=== PATIENT | female | born 1975 | race Caucasian/White ===

== ENCOUNTER 2018-08-07 02:53 | Observation (INO) | payer BC ==
[2018-08-07] MEDS ORDERED: Magnesium Sulfate 2 GM/100 ML BAG ONE (04:02)
[2018-08-07 04:50] LABS: BHCG - Serum Negative (NEGATIVE); Pregs Control Background? CLEAR/WHITE (CLR/WHITE); Pregs Control Bar Appear? YES (CONTROL BAR)
[2018-08-07 04:55] LABS: ALT (SGPT) 23 U/L (8-55); AST (SGOT) 27 U/L (5-34); Acetaminophen Less than 6.0 mcg/mL (10.0-30.0); Albumin 5.3 g/dL (3.5-5.0); Alcohol Less than 10 mg/dL (Less than 10); Alkaline Phosphatase 52 U/L (40-150); Anion Gap 15 mmol/L (10-20); BUN (Urea Nitrogen) 7 mg/dL (7.0-18.7); Bilirubin, Total 1.8 mg/dL (0.2-1.2); Calc. Creatinine Clearance 0 mL/min (70-130); Calcium 11.1 mg/dL (7.8-10.44); Carbon Dioxide 25 mmol/L (22-29); Chloride 101 mmol/L (98-107); Estimated GFR-MDRD 75; Globulin 3.3 g/dL (2.4-3.5); Glucose 112 mg/dL (70-105); Protein, Total 8.6 g/dL (6.0-8.3); Salicylate Less than 8.0 mg/dL (15.0-30.0); Sodium 138 mmol/L (136-145)
[2018-08-07 04:58] LABS: #Basophils 0.1 thou/uL (0.0-0.2); #Lymphocytes 1.2 thou/uL (1.20-3.40); #Monocytes 0.5 thou/uL (0.11-0.59); %Basophils 0.6 % (0.0-1.0); %Eosinophils 0.3 % (0.0-10.0); %Lymphocytes 11.4 % (21.0-51.0); %Monocytes 4.6 % (0.0-10.0); %Neutrophils 83.1 % (42.0-75.0); Hemoglobin 15.4 g/dL (12.0-16.0); Mean Corpuscular HGB CONC 33.4 g/dL (32.0-36.0); Mean Corpuscular Hemoglobin 34.4 pg (27.0-31.0); Mean Platelet Volume 10.3 fL (7.4-10.4); Platelet Count 183 thou/uL (130-400); RBC Distribution Width 12.3 % (11.5-14.5); Red Blood Cell (RBC) Count 4.47 mill/uL (4.20-5.40); White Blood Cell (WBC) Count 10.8 thou/uL (4.8-10.8)
[2018-08-07 04:59] LABS: Troponin I Less than 0.010 ng/mL (< 0.028)
[2018-08-07] MEDS ORDERED: Lorazepam 2 MG/ML VIAL ONE (05:00)
[2018-08-07 05:05] LABS: CKMB 7.2 ng/mL (0-6.6)
[2018-08-07 05:12] LABS: Thyroid Stimulating Hormone 2.6533 uIU/mL (0.35-4.94)
[2018-08-07] MEDS ORDERED: levETIRAcetam In NaCl (Iso-Os) 1,000 MG in Premix Bag 1 BAG IVPB SCH ×4 (05:30→21:00)
--- NOTE | 2018-08-07 06:00 | PDOC.FPRHP ---
- History of Present Illness Chief Complaint: Seizure History of Present Illness: Patient presents after having seizure like activity at 0100 this morning. Patient's boyfriend witnessed seizure and told her what happened as she does not remember anything. They went downstairs to get a snack and she fell down, shook, boyfriend performed CPR, and she awoke on the couch. Approx 20 min to come to herself. Nausea and vomit x4 then went to ED with her mother. Reportedly had another seizure, full body shaking, in the ED seen by nurse. A few minutes before she came to herself. It was reported to be an atypical post ictal presentation. No incontinence. Pt vomiting in room at time of exam. Feels hot and cold, has headache. Switched from zoloft-> celexa 2 mo ago. Since then has lost weight d/t decreased appetite. Otherwise no recent medication changes. Previous heavy alcohol user. Last drink 2 weeks ago. Rx for xanax that she takes BID. Only missed one dose last night. ED Course: ativan 2mg, mag 2g, keppra 1000mg, CT brain - Allergies/Adverse Reactions Allergies Allergy/AdvReac Type Severity Reaction Status Date / Time codeine Allergy Mild Rash Verified 08/07/18 14:10 gluten Allergy Unknown Verified 08/08/18 12:29 lactase [From Dairy Aid] Allergy Unknown Verified 08/08/18 12:30 - Home Medications Medication Instructions Recorded Confirmed Type ALPRAZolam [Alprazolam] 2 tab PO DAILY 08/07/18 08/07/18 History Citalopram Hydrobromide 40 mg PO HS 08/07/18 08/07/18 History [Citalopram HBr] Melatonin 10 mg PO HS 08/07/18 08/07/18 History levETIRAcetam [Keppra] 500 mg PO BID #28 tab 08/08/18 Rx - History PMHx: anxiety, depression PSHx: none FHx: brother- CVA @ 40, brother with hx seizure Social: Lives with boyfriend. Occasional tobacco use. Vapes daily. Uses marijuana. Previous "heavy" alcohol use. Last drink 2 wks ago. - Review of Systems General: reports: fever/chills, weight/appetite/sleep changes Eyes: denies: eye pain, vision changes ENT: denies: nasal congestion, rhinorrhea Respiratory: denies: cough, shortness of breath Cardiovascular: denies: chest pain, palpitation Gastrointestinal: reports: nausea, vomiting. denies: diarrhea, abdominal pain Genitourinary: denies: incontinence, dysuria Skin: denies: rashes, lesions Musculoskeletal: denies: pain, swelling Neurological: reports: seizure. denies: numbness Psychological: reports: anxiety, depression - Vital signs BP: 136/76 HR: 111 RR: 18 Tmax: 98 Pox: 94% on RA Wt: 59 kg - Physical Exam -Constitutional: Vomiting HEENT: normocephalic and atraumatic, grossly normal vision, grossly normal hearing, MMM, oropharynx clear (no trauma seen) Neck: supple, trachea midline, no LAD, no thyromegaly Heart: RRR, normal S1/S2, pulses present Lungs: CTAB, good air movement, no rales/rhonchi, no wheezing Abdomen: soft, non-tender, bowel sounds present Musculoskeletal: normal structure, ROM grossly normal Neurological: no focal deficit (5/5 muscle strength all extremities) Skin: no rash/lesions, good turgor, capillary refill <2 seconds Heme/Lymphatic: no unusual bruising or bleeding -Psychiatric: odd affect FMR H&P: Results - Labs Result Diagrams: 08/08/18 03:52 08/08/18 03:52 Lab results: WBC 10.8 thou/uL (4.8-10.8) 08/07/18 04:02 Hgb 15.4 g/dL (12.0-16.0) 08/07/18 04:02 Hct 46.0 % (36.0-47.0) 08/07/18 04:02 MCV 103.0 fL (78.0-98.0) H 08/07/18 04:02 Plt Count 183 thou/uL (130-400) 08/07/18 04:02 Neutrophils % 83.1 % (42.0-75.0) H 08/07/18 04:02 Sodium 138 mmol/L (136-145) 08/07/18 04:02 Potassium 3.0 mmol/L (3.5-5.1) L 08/07/18 04:02 Chloride 101 mmol/L (98-107) 08/07/18 04:02 Carbon Dioxide 25 mmol/L (22-29) 08/07/18 04:02 BUN 7 mg/dL (7.0-18.7) 08/07/18 04:02 Creatinine 0.84 mg/dL (0.6-1.1) 08/07/18 04:02 Glucose 112 mg/dL (70-105) H 08/07/18 04:02 Calcium 11.1 mg/dL (7.8-10.44) H 08/07/18 04:02 Total Bilirubin 1.8 mg/dL (0.2-1.2) H 08/07/18 04:02 AST 27 U/L (5-34) 08/07/18 04:02 ALT 23 U/L (8-55) 08/07/18 04:02 Alkaline Phosphatase 52 U/L (40-150) 08/07/18 04:02 CK-MB (CK-2) 7.2 ng/mL (0-6.6) H* 08/07/18 04:02 Serum Total Protein 8.6 g/dL (6.0-8.3) H 08/07/18 04:02 Albumin 5.3 g/dL (3.5-5.0) H 08/07/18 04:02 FMR H&P: A/P - Plan 42 yo F with hx of anxiety/depression presents after witnessed seizure. Tonic clonic seizure - Witnessed by boyfriend and ED nurse. In setting of no hx of seizure, unprovoked, no recent medication changes, no significant electrolyte abnormalities, no recent sickness. - got ativan, magnesium, keppra in ED - ddx includes seizure vs withdrawal vs pseudoseizure - CT brain pending - consult neurology in am - ativan prn - UDS pending Alcohol abuse - history of "heavy" use - last drink 2 weeks ago - concern for withdrawal - on ASE protocol Benzodiazepine use - reportedly takes xanax twice daily - med rec pending Anxiety/depression - med rec pending Marijuana use Ppx: SCDs Diet: regular Dispo: admit to stroke unit for observation FMR H&P: Upper Level - Plan Date/Time: 08/07/18 0555 I, [], have evaluated this patient and agree with findings/plan as outlined by video editing intern resident. Pertinent changes/additions are listed here. Attending Addendum - Attending Addendum Date/Time: 08/14/18 7361 I personally evaluated the patient and discussed the management with Dr. Bradford. I agree with the History, Examination, Assessment and Plan documented above with any addition or exceptions noted below. please see event note for further details.
[2018-08-07] MEDS ORDERED: Metoclopramide HCl 10 MG/2 ML VIAL ONE (06:03)
[2018-08-07] MEDS ORDERED: diphenhydrAMINE 50 MG/ML VIAL ONE (06:03)
[2018-08-07] MEDS ORDERED: Lorazepam 2 MG/ML VIAL SLOW IVP PRN (11:01)
[2018-08-07] MEDS ORDERED: Ondansetron HCl/PF 4 MG/2 ML Vial IVP PRN (11:01)
[2018-08-07] MEDS ORDERED: Ondansetron ODT 4 MG TAB PO PRN (11:01)
--- NOTE | 2018-08-07 11:24 | CT ---
PRELIMINARY REPORT/[facility]/EMERGENTY AFTER-HOURS PROCEDURE CT Head Without Intravenous Contrast EXAM DATE/TIME: 08/07/2018 3:57 AM CLINICAL HISTORY: 42 years old, female; Signs and symptoms; Syncope and collapse; Patient HX: Er 9; 42 year old female with pmh hld, anxiety and depression presents after unprovoked syncopal episode that occurred while s he was down in the kitchen with her boyfriend around 01: 30 this am. Per patient's report, her boyfri end saw her shaking and thought she was having seizure. She did hit her head when she fell but denies any pain or injuries elsewhere. Patient denies any history of seizure disorder. TECHNIQUE: Axial computed tomography images of the head/brain without intravenous contrast. COMPARISON: No relevant prior studies available. FINDINGS: Brain: Mild generalized volume loss of the brain. No brain edema. No intracranial hemorrhage. Ventricles: Normal. No ventriculomegaly. Bones/joints: Normal. No acute fracture. Sinuses: Normal as visualized. No acute sinusitis. Mastoid air cells: Normal as visualized. No mastoid effusion. Soft tissues: Normal. IMPRESSION: No acute brain findings. Thank you for allowing us to participate in the care of your patient. Dictated and Authenticated by: Walter Valdez MD 08/07/2018 4:30 AM Central Time ([place] & [place]) FINAL REPORT CT HEAD NONCONTRAST: Date: 08-07-18 Performed on emergency basis at 0358 hours. History: Syncope. FINDINGS: No comparison. Findings agree with the preliminary report by Dr. Valdez from [facility]. No a cute intracranial abnormalities are demonstrated. Code QA POS: [facility]
--- NOTE | 2018-08-07 11:31 | PDOC.EVN ---
Attending Addendum - Attending Addendum Date/Time: 08/07/18 1128 I personally evaluated the patient and discussed the management with Dr. Bradford /Aaron. I agree with the History, Examination, Assessment and Plan documented in the electronic H&P with any addition or exceptions noted below. Patient with history of alcohol and polysubstance abuse but no reported recent intake presenting with seizure x2. Patient reports no history of seizures. Her second seizure was witnessed in the ER and described as tonic clonic with post- ictal period afterward. Patient reports that she has recently been in normal health and denies headaches, vision changes, sensory or motor changes, fevers, chills, chest pains. Her exam is overall benign, and she is at baseline mentation and answers questions appropriately. She will be admitted for initial seizure diagnosis and workup. Plan to obtain routine labs, drug screen, and obtain MRI. Continue Keppra and consult Neurology. Further mgmt per their recs. Continue seizure precautions. Monitor patient for signs of alcohol or drug withdrawal.
[2018-08-07 12:12] LABS: Bilirubin Negative (Negative); Blood, Urine Moderate (Negative); Clarity CLOUDY (Clear); Glucose, Urine (Dipstick) 250 mg/dL (Negative); Leukocyte Negative (Negative); Nitrite Negative (Negative); Protein, Urine (Dipstick) Trace mg/dL (Neg-Trace); Specific Gravity, Urine 1.014 (1.002-1.036); Urobilinogen 0.2 mg/dL (0.2-1.0)
[2018-08-07 12:14] LABS: Bacteria/HPF 1+ HPF (None Seen)
[2018-08-07 12:15] LABS: Pathc Cast-AUWi Flag 9.15 (0-2.49)
[2018-08-07 12:21] LABS: Medtox Reader # READER 4; THC/Cannabinoid Screen Detected (NotDetected)
[2018-08-07 12:22] LABS: Amphetamine Detected (NotDetected); Barbiturates Screen Not Detected (NotDetected); Benzodiazepine Screen Detected (NotDetected); Cocaine Metabolite Screen Not Detected (NotDetected); Medtox Control Line Valid? VALID (VALID); Methadone Not Detected (NotDetected); Methamphetamine Not Detected (NotDetected); Opiate Screen Not Detected (NotDetected); Oxycodone Screen Not Detected (NotDetected); Phencyclidine (PCP) Not Detected (NotDetected); Tricyclic Screen Not Detected (NotDetected)
[2018-08-07 12:25] LABS: Hyaline Casts/LPF 4-6 HYALINE CAST LPF (0-3 Hyaline); Other Casts/LPF None Seen LPF (0-3 Hyaline)
[2018-08-07 12:26] LABS: Squamous Epithelial 21-50 HPF (0-3)
[2018-08-07 14:18] VITALS: BMI 20.6
[2018-08-07] MEDS ORDERED: Potassium Chloride 20 MEQ TAB PO SCH (14:30)
[2018-08-07] MEDS: Acetaminophen 650 MG/20.3 ML UDCUP PO PRN ×2 (16:58→20:59)
--- NOTE | 2018-08-07 19:34 | MRI ---
MRI BRAIN WITHOUT CONTRAST: 08/07/18 HISTORY: New onset seizure. COMPARISON: None. TECHNIQUE: Brain MRI is performed without intravenous gadolinium administration. Multisequential, multiplanar im aging is performed. FINDINGS: There is symmetric signal intensity of the hippocampi on the coronal sequences. There is no evidence of brain parenchymal hemorrhage on the coronal gradient echo sequence. There are minimal T2 and FLAIR white matter hyperintensities on the coronal FLAIR sequence. Chronic s mall vessel ischemic changes are favored. No parenchymal mass, mass effect or midline shift. Brain volume is age appropriate. Coronal harris-whit e matter differentiation is preserved. No evidence of hydrocephalus. Calvarium has a normal T1 marrow signal intensity and the midline brain parenchymal structures are un remarkable. Partial opacification right mastoid air cells. Minimal mucosal thickening of the ethmoid air cells. Central arterial flow voids are maintained. Absent restricted diffusion. IMPRESSION: Unremarkable noncontrast brain MRI. POS: [facility]
[2018-08-07] MEDS: levETIRAcetam In NaCl (Iso-Os) 1,000 MG in Premix Bag 1 BAG IVPB SCH ×2 (20:59→21:14)
[2018-08-08 04:39] LABS: #Basophils 0.1 thou/uL (0.0-0.2); #Eosinphils 0.1 thou/uL (0.0-0.7); #Monocytes 0.6 thou/uL (0.11-0.59); #Neutrophils 4.1 thou/uL (1.40-6.50); %Basophils 0.8 % (0.0-1.0); %Eosinophils 1.1 % (0.0-10.0); %Lymphocytes 29.5 % (21.0-51.0); %Monocytes 8.6 % (0.0-10.0); %Neutrophils 60.1 % (42.0-75.0); Hemoglobin 13.3 g/dL (12.0-16.0); Mean Corpuscular HGB CONC 33.7 g/dL (32.0-36.0); Mean Corpuscular Hemoglobin 35.2 pg (27.0-31.0); Mean Platelet Volume 10.5 fL (7.4-10.4); Platelet Count 160 thou/uL (130-400); RBC Distribution Width 12.1 % (11.5-14.5); Red Blood Cell (RBC) Count 3.78 mill/uL (4.20-5.40); White Blood Cell (WBC) Count 6.8 thou/uL (4.8-10.8)
[2018-08-08 05:00] LABS: Anion Gap 13 mmol/L (10-20); BUN (Urea Nitrogen) 4 mg/dL (7.0-18.7); Calc. Creatinine Clearance 100 mL/min (70-130); Calcium 9.1 mg/dL (7.8-10.44); Carbon Dioxide 24 mmol/L (22-29); Chloride 106 mmol/L (98-107); Estimated GFR-MDRD 89; Glucose 98 mg/dL (70-105); Potassium 3.6 mmol/L (3.5-5.1); Sodium 139 mmol/L (136-145)
--- NOTE | 2018-08-08 05:32 | PDOC.FM ---
- Subjective Subjective: Pt feeling well this morning, headache has resolved from yesterday. States she last "smoked" early last week. Stated she did not know what she was smoking. States she is on her period at this time. Had parasthesia on plantar surface left foot last night that resolved. - Objective Vital Signs & Weight: Vital Signs (12 hours) Temp Pulse Resp BP Pulse Ox 08/08/18 04:00 97.6 F 70 16 119/74 97 08/08/18 00:00 98.5 F 96 16 112/61 97 08/07/18 20:55 98.6 F 100 16 08/07/18 20:00 98.6 F 100 16 141/83 H 97 Weight Weight 61.598 kg I&O: 08/06/18 08/07/18 08/08/18 06:59 06:59 06:59 Intake Total 340 Balance 340 Result Diagrams: 08/08/18 03:52 08/08/18 03:52 <Lucinda Retana - Last Filed: 08/08/18 09:12> - Objective Vital Signs & Weight: Vital Signs (12 hours) Temp Pulse Resp BP BP Pulse Ox 08/08/18 11:32 97.7 F 93 16 121/64 96 08/08/18 07:42 98.5 F 71 16 114/70 97 08/08/18 07:40 98.5 F 71 16 08/08/18 04:26 119/74 08/08/18 04:00 97.6 F 70 16 119/74 97 08/08/18 00:40 112/61 08/08/18 00:00 98.5 F 96 16 112/61 97 Weight Weight 61.598 kg I&O: 08/07/18 08/08/18 08/09/18 06:59 06:59 06:59 Intake Total 340 221 Balance 340 221 Result Diagrams: 08/08/18 03:52 08/08/18 03:52 <Tarik Alfonso - Last Filed: 08/08/18 11:35> Phys Exam - Physical Examination Constitutional: NAD HEENT: PERRLA, moist MMs Neck: no nodes, supple Respiratory: no wheezing, no rales, no rhonchi, clear to auscultation bilateral Cardiovascular: RRR, no significant murmur Gastrointestinal: soft, non-tender, no distention, positive bowel sounds Musculoskeletal: no edema, pulses present Neurological: normal sensation, moves all 4 limbs Psychiatric: normal affect, A&O x 3 <Lucinda Retana - Last Filed: 08/08/18 09:12> Dx/Plan (1) Alcohol abuse Code(s): F10.10 - ALCOHOL ABUSE, UNCOMPLICATED Status: Acute (2) Tonic clonic seizures Code(s): G40.409 - OTH GENERALIZED EPILEPSY, NOT INTRACTABLE, W/O STAT EPI Status: Acute (3) Illicit drug use Code(s): F19.90 - OTHER PSYCHOACTIVE SUBSTANCE USE, UNSPECIFIED, UNCOMPLICATED Status: Acute (4) Anxiety with depression Code(s): F41.8 - OTHER SPECIFIED ANXIETY DISORDERS Status: Acute - Plan Plan: 42 yo F with hx of anxiety/depression presents after witnessed seizure. Tonic clonic seizure - Witnessed by boyfriend and ED nurse. In setting of no hx of seizure, unprovoked, no recent medication changes, no significant electrolyte abnormalities, no recent sickness. - got ativan, magnesium, keppra in ED - ddx includes seizure vs withdrawal vs pseudoseizure - CT brain negative - Neuro consulted 08/07/18, plan for EEG today - ativan prn - UDS + - prolactin high (36.08) Alcohol abuse - history of "heavy" use - last drink 2 weeks ago - concern for withdrawal - on ASE protocol Benzodiazepine use - reportedly takes xanax twice daily - med rec pending Anxiety/depression -can resume medication after discharge, will most likely go home today or tomorrow Illicit drug use -UDS + for marijuana and amphetamine and benzos Hypophosphatemia -phosphate was <1.0 -Phosnac given Ppx: SCDs Diet: regular <Lucinda Retana - Last Filed: 08/08/18 09:12> Attending Addendum - Attending Addendum Date/Time: 08/08/18 8058 I personally evaluated the patient and discussed the management with Dr. Retana. I agree with the History, Examination, Assessment and Plan documented above with any addition or exceptions noted below. Patient stable, has been seizure free. Neurology on board. We anticipate that this is illicit substance mediated. Continue Keppra. EEG pending. Likely discharge this afternoon if cleared by Neurology. <Tarik Alfonso R - Last Filed: 08/08/18 11:35>
[2018-08-08 06:01] LABS: Hemoglobin A1c 4.9 % (4.0-6.0)
[2018-08-08 11:32] VITALS: BP 121/64; TEMP 97.7
--- NOTE | 2018-08-08 15:09 | CON ---
DATE OF CONSULTATION: 08/07/2018 REFERRING PHYSICIAN: Chucho Sandy M.D. REASON FOR CONSULTATION: Seizure. HISTORY OF PRESENT ILLNESS: Ms. Parker is a pleasant 42-year-old female who has been consulted for evaluation of new onset seizure. History is obtained from patient's who was present at bedside as well as patient herself . She reports that she was standing up and using microwave when she suddenly passed out. notes that after she passed out she was having generalized convulsions that lasted few minutes. After she regained consciousness, she appeared very confused and disoriented. She did not have tongue biting or loss of bladder control with this episode. She also complained of having headache with light sensitivity along with nausea and vomiting. She has vomited once or twice. She was brought to the [facility], while in the emergency room, she had another episode of passing out followed by whole body convulsions that lasted 2-3 minutes. Again, she had a prolonged postictal confusion state. There was no tongue biting or loss of bladder control. She has no prior history of seizure disorder, no prior history of head trauma or STIFF NECK LOADER infection. She has no family history of seizure disorder. Currently, she denies any headache, chest pain, palpitation, nausea, vomiting, numbness, tingling, weakness, lightheadedness or dizziness. PAST MEDICAL HISTORY: Significant for anxiety and depression. PAST SURGICAL HISTORY: None significant. SOCIAL HISTORY: She lives with her boyfriend. She occasionally use tobacco. She uses marijuana and has history of heavy alcohol use in the past with the last drink 2 weeks ago. FAMILY HISTORY: Significant for brother with a history of stroke at the age of 40. CURRENT MEDICATIONS: Please review MAR. ALLERGIES: Include CODEINE. REVIEW OF SYSTEMS: As mentioned above in the HPI, otherwise negative. PHYSICAL EXAMINATION: VITAL SIGNS: Blood pressure of 135/72, pulse of 97, temperature of 97.5, respirations of 14, O2 sats 98% on room air. GENERAL: A well-developed, well-nourished female in no apparent distress. RESPIRATORY: Clear to auscultation bilaterally. CARDIOVASCULAR: Regular rate and rhythm. NEUROLOGIC: Mental status: The patient is awake, alert, oriented x3. Speech and language: Fluent speech. Cranial nerves: Pupils are 3 mm and reactive. Visual rich are intact. External muscles are intact. No nystagmus noted. Face is symmetric. Tongue and uvula are midline. Motor exam showed normal tone and bulk with 5/5 strength in both upper and lower extremities. Sensory: Sensation is intact and symmetric. Deep tendon reflexes, 2+ reflexes in both upper and lower extremities. Babinski: Plantar responses flexion bilaterally. Coordination is intact to [id number] and finger tapping bilaterally. LABORATORY DATA: Reviewed, which included CBC, CMP, TSH, CK-MB, troponin, urinalysis and urine drug screen, which is significant for potassium of 3.0, glucose of 112, total bilirubin of 1.8. CK-MB of 7.2. Urinalysis showed 4-6 wbc, 1+ bacteria, but negative nitrites and leukocyte esterase. Urine drug screen was positive for amphetamines, cannabinoids, and benzodiazepines. IMAGING STUDIES: MRI of brain without contrast was reviewed, which was essentially normal. IMPRESSION: Generalized tonic-clonic seizure. ASSESSMENT AND PLAN: Ms. Parker is a pleasant 42-year-old female who presented with the new onset seizure. Based on the description of the spell, this is likely generalized tonic-clonic seizure. At this time, I would recommend starting her on antiepileptic medication as she had 2 episodes this time; however, I would change the dose from 1000 mg to 500 mg twice a day of Keppra. I will obtain EEG in the morning and if she remains stable overnight without any seizure-like event, then she is okay to be discharged to home. She will need a followup outpatient Neurology appointment with Dr. Alvares. Thank you for your consultation. [facility]
--- NOTE | 2018-08-09 12:27 | DIS-2 ---
DATE OF ADMISSION: 08/07/2018 DATE OF DISCHARGE: 08/08/2018 ADMITTING ATTENDING: Dr. Nicole Pop DISCHARGE ATTENDING: Dr. Tarik Alfonso CONSULTS: Neurology, Dr. Louis on 08/07/2018. PROCEDURES: 1. Brain CT on 08/07/2018. Findings: mild generalized volume loss of the brain , no brain edema, no intracranial hemorrhage. Impression: No acute brain findings. 2. Brain MRI on 08/07/2018. Impression: Unremarkable noncontrast brain MRI. PRIMARY DIAGNOSIS: Suspected drug-induced seizures. SECONDARY DIAGNOSES: Anxiety and depression, illicit drug use, hypophosphatemia. DISCHARGE MEDICATIONS: 1. Alprazolam 0.5 mg 2 tabs p.o. daily. 2. Citalopram 40 mg p.o. at bedtime. 3. Keppra 500 mg p.o. b.i.d. 4. Melatonin 10 mg capsule p.o. at bedtime. HISTORY OF PRESENT ILLNESS AND HOSPITAL COURSE: The patient presented after having seizure-like activity at 1 in the morning. The patient's significant other witnessed seizure and told her what happened as she does not remember anything. They went downstairs to get a snack and she fell down. Significant other performed CPR and she awoke on the couch approximately 20 minutes before she came to herself. She had nausea and vomiting x4 and then went to the ED with her mother. She reportedly had another seizure, full body shaking, in the ED seen by the nurse. It was reported to be an atypical postictal presentation. No incontinence. The patient vomited in the room at the time of exam. She reports feeling hot and cold, had a headache. Recently switched from Zoloft to Celexa 2 months ago. Since then, she has lost weight and has had decreased appetite. Otherwise, no recent medication changes. She was previously a heavy alcohol user. Her last drink was 2 weeks ago. She was prescribed Xanax which she takes b.i.d. Only missed 1 dose the last night. In the ED, she received Ativan 2 mg, mag 2 grams, Keppra 1000 mg and had a brain CT , which was negative. She was seen by Neurology on 08/07/2018, they did an EEG , which returned normal. Neurology recommended 500 Keppra BID and will follow up with patient outpatient for further management or workup. Her UDS was positive for benzos, marijuana and amphetamine. Her prolactin came back high at 36. She has a history of alcohol abuse and as there was concern for withdrawal, she was on ASE protocol while in the hospital. She had a phosphate less than 1 which was repleted with Fosamax during her hospitalization. She was discharged in stable condition, and encouraged to quit using illicit drugs and follow up with her PCP. DISPOSITION: Stable. DISCHARGE INSTRUCTIONS: 1. Location: Home. 2. Diet: No restrictions. 3. Activity as tolerated. 4. Followup: Follow up with PCP, Dr. Pritchard within 7 days. Follow up with Dr. James Alvares for Neurology. [facility]
--- NOTE | 2018-08-18 13:17 | EKG ---
Test Reason : Blood Pressure : / mmHG Vent. Rate : 073 BPM Atrial Rate : 073 BPM P-R Int : 128 ms QRS Dur : 072 ms QT Int : 464 ms P-R-T Axes : 046 037 037 degrees QTc Int : 511 ms Normal sinus rhythm Prolonged QT Abnormal ECG Confirmed by STAN DOWD ([id number]), manager editorial MANI PALOMARES ([id number]) on 08/18/2018 1:17:13 PM Referred By: Confirmed By:STAN DOWD
== END 2018-08-08 15:10 | disposition home or self-care (01) ==
LOC: ERS 02:53 → ERHOLD 05:05 → 2SE 13:39
PROVIDERS: ADMIT Student in an Organized Health Care Education/Training Program; ATTEND Student in an Organized Health Care Education/Training Program
DX: G40.409 Other generalized epilepsy and epileptic syndromes, not intractable, without status epilepticus (principal); E83.39 Other disorders of phosphorus metabolism; F10.10 Alcohol abuse, uncomplicated; F19.90 Other psychoactive substance use, unspecified, uncomplicated; F41.8 Other specified anxiety disorders; Z88.5 Allergy status to narcotic agent; Z79.899 Other long term (current) drug therapy
CPT/HCPCS: 36415; 70450; 70551; 80048; 80053; 80306; 80307; 81003; 81015; 82553; 83036; 83735; 84100; 84146; 84443; 84484; 84703; 85025; 93005; 95816; 95819; 96365; 96366; 96367; 96375; G0378; J1200; J1953; J2060; J2765; J3475